=== PATIENT | female | born 1995 | race Caucasian/White ===

== ENCOUNTER 2018-12-21 17:45 | Emergency (ER) | payer MEDICAID ==
[~2018-12-21] VITALS: Ht 170.2 cm; Wt 49.9 kg
[2018-12-21 18:15] VITALS: BP_SYST 108
--- NOTE | 2018-12-21 18:22 | NUR ---
Patient triaged and placed in waiting room. VSS and patient appears in no acute distress at this time. Accompanied by family, awaiting available bed, and MD notified of need for MSE.
--- NOTE | 2018-12-21 19:30 | NUR ---
Pt placed to ER hallway bed with c/o laceration to LHA from broken glass while trying to clean it from the floor. Arrives with dsg in place secured with bandage wrap. Wrap removed to reveal ~1 cm skin avulsion to web between thumb and digit one on LHA. Bleeding controlled, no visible glass to wound.
[2018-12-21] MEDS ORDERED: LIDOCAINE 1% 10 MG/ML, 20 ML MDV SUBCUT ONE (21:15)
[2018-12-21] MEDS ORDERED: DIPH-TET-PERTUS Vaccine 0.5 ML VIAL (ADACEL) I.M. ONE (22:00)
--- NOTE | 2018-12-21 22:56 | NUR ---
Dr. Merlos at bedside to perform suturing.
--- NOTE | 2018-12-21 23:32 | NUR ---
X-ray at bedside.
--- NOTE | 2018-12-21 23:55 | NUR ---
Laceration to LHA well approximated with sutures. Site cleaned with NS, patted dry with sterile gauze, bacitracin applied and covered with non-adherent dsg, secured with kerlex bandage. Pt tolerated well. Pt able to move all digits, cap refil < 3 sec to nail beds.
[2018-12-22] MEDS ORDERED: BACITRACIN 1 GM OINT TP ONE ×2 (00:02)
[2018-12-22 00:10] VITALS: BP_SYST 110
--- NOTE | 2018-12-22 00:10 | NUR ---
Patient given written and verbal discharge instructions and verbalizes understanding. ER MD discussed with patient the results and treatment provided. Patient in stable condition. ID arm band removed. Rx of Augmentin given. Patient educated on pain management and to follow up with PMD. Pain Scale 0/10. Opportunity for questions provided and answered. Medication side effect fact sheet provided.
== END 2018-12-22 00:10 | disposition home or self-care (01) ==
LOC: SED 17:45
DX: S61.411A Laceration without foreign body of right hand, initial encounter (principal); W25.XXXA Contact with sharp glass, initial encounter; Y93.89 Activity, other specified; Y92.89 Other specified places as the place of occurrence of the external cause; Y99.8 Other external cause status
CPT/HCPCS: 90715; 99285; J2001

== ENCOUNTER 2018-12-23 12:55 | Emergency (ER) | payer MEDICAID ==
[~2018-12-23] VITALS: Ht 170.2 cm; Wt 52.2 kg
[2018-12-23 12:58] VITALS: BP_SYST 117
--- NOTE | 2018-12-23 13:05 | NUR ---
Patient to ER bed 5 to gown for evaluation. Side rails up. Report given to Kane MELCHOR.
--- NOTE | 2018-12-23 13:07 | NUR ---
PATIENT CAME IN TO CHECK HER SUTURES ON HER RIGHT HAND. PATIENT WAS HERE 2 DAYS AGO BECAUSE SHE CUT HER HAND WITH GLASS. PATIENT DENIES PAIN AND SOB. PATIENT COMPLAINING OF NUMBNESS TO FINGER TIPS SINCE SHE CUT HER HAND. SUTURES ARE DRY AND INTACT. NO REDNESS, SWELLING OR DRAINAGE. PATIENT IS ALERT AND ORIENTED X4.
--- NOTE | 2018-12-23 13:10 | NUR ---
FLAQUITA WADSWORTH examining patient.
[2018-12-23] MEDS ORDERED: BACITRACIN 1 GM OINT TP ONE (13:30)
[2018-12-23 13:33] VITALS: BP_SYST 117
--- NOTE | 2018-12-23 13:33 | NUR ---
Patient given written and verbal discharge instructions and verbalizes understanding. ER MD discussed with patient the results and treatment provided. Patient in stable condition. ID arm band removed. Rx of BACTRACIN given. Patient educated on pain management and to follow up with PMD. Pain Scale 0/10. Opportunity for questions provided and answered. Medication side effect fact sheet provided.
== END 2018-12-23 13:33 | disposition home or self-care (01) ==
LOC: SED 12:55
DX: S61.411D Laceration without foreign body of right hand, subsequent encounter (principal); W25.XXXD Contact with sharp glass, subsequent encounter
CPT/HCPCS: 99282

== ENCOUNTER 2019-01-01 09:45 | Emergency (ER) | payer MEDICAID ==
[~2019-01-01] VITALS: Ht 170.2 cm; Wt 54.4 kg
[2019-01-01 09:45] VITALS: BP_SYST 120
[2019-01-01 10:30] VITALS: BP_SYST 120
== END 2019-01-01 10:30 | disposition home or self-care (01) ==
LOC: SED 09:45
DX: S61.411D Laceration without foreign body of right hand, subsequent encounter (principal); X58.XXXD Exposure to other specified factors, subsequent encounter
CPT/HCPCS: 99281